=== PATIENT | female | born 1955 | race Caucasian/White ===

== ENCOUNTER 2022-10-20 19:52 | Inpatient (IN) | payer MEDICAID, MEDICARE ==
[~2022-10-20] VITALS: Ht 152.4 cm; Wt 44.5 kg
[2022-10-20 20:38] VITALS: BP_SYST 111
--- NOTE | 2022-10-20 21:08 | NUR ---
WITH PATIENT FOR MSE.
--- NOTE | 2022-10-20 21:10 | NUR ---
Patient triaged and placed in waiting room. VSS and patient appears in no acute distress at this time. Accompanied by self , awaiting available bed, and MD notified of need for MSE.
[2022-10-20] MEDS ORDERED: NACL 0.9% 1,000 ML IV ONE (21:15)
--- NOTE | 2022-10-20 21:51 | NUR ---
Patient to ER bed 08 to gown for evaluation. Side rails up.
--- NOTE | 2022-10-20 22:00 | NUR ---
PT FROM HOME TOLD TO COME IN BY PCP. PT REPORTS PCP TOLD HER SHE HAD PNA AFTER WORK UP. PT REPORT FEELING GEN WEAK, DENIES PAIN AND SOB. A&O X4 AND FOLLOWING COMMANDS. PT WITH HX OF LUNG CANCER.
[2022-10-20] MEDS ORDERED: iohexoL 350 mgI/mL, 100 ML INFUS..BTL IV ONE (22:19)
[2022-10-20 22:38] LABS: ANION GAP 7 (5-15); CHLORIDE 102 mmol/L (98-107); GLUCOSE 143 mg/dL (70-99); UREA NITROGEN, BLOOD 24 mg/dL (8-21)
[2022-10-20 22:50] LABS: ALANINE AMINOTRANSFERASE 20 U/L (12-78); ALBUMIN 2.4 g/dL (3.4-4.8); ASPARTATE AMINOTRANSFERASE 26 U/L (10-37); LIPASE 105 U/L (73-393); TOTAL BILIRUBIN 0.4 mg/dL (0.0-1.0)
[2022-10-20 22:53] LABS: GFR AFRICAN AMERICAN 71 mL/min (>90)
[2022-10-20 22:59] LABS: BASOPHILS # (AUTO) 0.1 K/uL (0.0-0.2); BASOPHILS % (AUTO) 0.5 % (0.0-2.0); EOSINOPHILS # (AUTO) 0.5 K/uL (0.0-0.4); EOSINOPHILS % (AUTO) 4.9 % (0.0-4.0); HEMATOCRIT 43.5 % (36-48); HEMOGLOBIN 14.1 g/dL (12.0-16.0); LYMPHOCYTES # (AUTO) 0.6 K/uL (1.0-5.5); LYMPHOCYTES % (AUTO) 5.4 % (20.5-51.5); MEAN CORPUSCULAR HEMOGLOBIN 29 pg (27-31); MEAN CORPUSCULAR HGB CONC 32 % (32-36); MEAN CORPUSCULAR VOLUME 90 fL (79.0-98.0); MONOCYTES # (AUTO) 0.8 K/uL (0.0-1.0); MONOCYTES % (AUTO) 7.7 % (1.7-9.3); NEUTROPHILS # (AUTO) 8.3 K/uL (1.8-7.7); NEUTROPHILS % (AUTO) 81.5 % (40.0-70.0); PLATELET COUNT (AUTO) 239 K/uL (130-430); RED BLOOD CELL COUNT(AUTO) 4.84 MIL/uL (4.2-6.2); RED CELL DISTRIBUTION WIDTH 14.6 % (9.0-15.0); WHITE BLOOD COUNT (AUTO) 10.2 K/uL (4.8-10.8)
[2022-10-21] VITALS (7 sets, daily range): BP systolic 92–120
[2022-10-21] MEDS ORDERED: NACL 0.9% 1,000 ML IV ONE (00:15)
--- NOTE | 2022-10-21 00:43 | NUR ---
Admit bed requested Patient will be admitted to care of Dr.PALIWAL Soto Admitted to MED SURG unit. Diagnosis PNA Inpatient (Yes or No) YES Observation (Yes or No) NO Orientation concerns or request close to nursing station (Yes or No) NO Covid Status NEGATIVE On vent or bipap NO Isolation requirements NO Needs a sitter NO From Home (Yes or if No enter name of facility) YES Requires Dialysis (Yes or No) NO Med Rec Completed (Yes of No) PENDING
--- NOTE | 2022-10-21 01:11 | NUR ---
MEDICATION REC COMPLETED. INFORMATION PROVIDED BY PATIENT.
--- NOTE | 2022-10-21 01:50 | NUR ---
Patient will be admitted to care of DR. COWART. Admitted to TELEMETRY unit. Will go to room 130A. Belongings list completed. Complete and up to date summary report printed. SBAR report given to KATHERIN ARREOLA at bedside with opportunity for questions.
--- NOTE | 2022-10-21 01:50 | NUR ---
ADMISSION NOTE [facility] room 130-A. A report given by [place]-ER nurse from phone. Patient admitted with diagnosis of Pneumonia . Patient is awake, alert, oriented X 4. Patient oriented to hospital room, call light, toileting, pain management and safety-teach back done. Patient informed that I (Denita) will be her nurse and that their room number is 130-A. Personal belongings checked and Belongings List documented. Pt is on 2L n/c oxy [id number]%. Iv site of LAC patent, no s/s any infiltration noted. Side rails x2,call light within reach. Cont to monitor pt.
--- NOTE | 2022-10-21 04:52 | NUR ---
ROUNDS; -Pt is asleep. No s/s any acute distress noted. Call light w/in reach. Cont to monitor pt.
--- NOTE | 2022-10-21 06:36 | NUR ---
CLOSING NOTES; -Pt is resting in bed comfortably. No s/s any sob,or any acute distress noted. Pt's condition stable. Fall precaution in place. bed alarmed, side rails x3, call light w/in reach. will endorse to next nurse to cont care.
[2022-10-21] MEDS ORDERED: HYDROcodone/ACETAMIN 10-325 MG TAB PO PRN (11:00)
[2022-10-21] MEDS ORDERED: ALBUTEROL SULFATE 0.083% 2.5 MG/3 ML VIAL.NEB INH PRN (11:00)
[2022-10-21] MEDS ORDERED: HYDROcodone/ACETAMIN 5-325 MG TAB (NORCO/ VICODIN) PO PRN (11:00)
[2022-10-21] MEDS ORDERED: IPRATROPIUM BROM 0.5 MG/2.5 ML VIAL.NEB (ATROVENT) INH PRN (11:00)
[2022-10-21] MEDS ORDERED: NALOXONE HCL 0.4 MG/ML AMP (NARCAN) IVP PRN ×2 (11:00)
[2022-10-21] MEDS ORDERED: ONDANSETRON HCL 4 MG/2 ML VIAL IVP PRN (11:00)
[2022-10-21] MEDS ORDERED: ACETAMINOPHEN 325 MG TABLET PO PRN (11:00)
--- NOTE | 2022-10-21 11:16 | NUR ---
CONSULTATION PAGED/CALLED Reason for Consultation: [] RESP FAIL Person Who was Notified: [] DEREK Consulting Physician: [] DR LIRA Submarine Diver Specialty: [] PULMO Ordering Physician: [] DR COWART
--- NOTE | 2022-10-21 11:19 | NUR ---
CONSULTATION PAGED/CALLED Reason for Consultation: [] PNA Person Who was Notified: [] ISIDRA Consulting Physician: [] DR BUCK Wood Grainer Specialty: [] ID Ordering Physician: [] DR Yesenia COWART
[2022-10-21] MEDS: NORMAL SALINE 5 ML DISP.SYRIN IVF SCH ×2 (13:58→23:11)
[2022-10-21] MEDS ORDERED: NORMAL SALINE 5 ML DISP.SYRIN IVF SCH (14:00)
--- NOTE | 2022-10-21 19:50 | NUR ---
PM ASSESSMENT; -Pt is a/ox4, resting in bed comfortably. Pt denies any chest pain,pain,sob,or any acute distress. No IV access this time. will insert new IV site. Discussed poc, all safety measures, pt verbalized understanding. Pt is able to ambulate with steady gaits. Side rails x2, call light w/in reach. Cont to monitor pt.
--- NOTE | 2022-10-21 21:36 | NUR ---
NOTES; -Inserted new IV site of LFA #22 attempted x1, good blood returns after flushed w/ ns,no s/s any infiltration, secured with tape.
[2022-10-22 00:25] VITALS: BP_SYST 116
--- NOTE | 2022-10-22 00:25 | NUR ---
ROUNDS; -Pt is resting in bed comfortably. VSS. Pt denies any chest pain,pain,sob,or any acute distress. Side rails x2, call light w/in reach. Cont to monitor pt.
[2022-10-22] MEDS: NORMAL SALINE 5 ML DISP.SYRIN IVF SCH ×3 (06:36→21:04)
--- NOTE | 2022-10-22 06:47 | NUR ---
CLOSING NOTES; -Pt is resting in bed comfortably. No s/s any sob,or any acute distress noted. Pt's condition stable. Fall precaution in place, side rails x2, call light w/in reach. will endorse to next nurse to cont care.
[2022-10-22 08:00] VITALS: BP_SYST 105
[2022-10-22 08:34] LABS: ALBUMIN 1.9 g/dL (3.4-4.8); CALCIUM 8.5 mg/dL (8.4-11.0); CREATININE 0.71 mg/dL (0.55-1.30); TOTAL BILIRUBIN 0.3 mg/dL (0.0-1.0)
[2022-10-22 08:57] LABS: BASOPHILS % (AUTO) 0.4 % (0.0-2.0); EOSINOPHILS # (AUTO) 0.5 K/uL (0.0-0.4); EOSINOPHILS % (AUTO) 7.3 % (0.0-4.0); HEMATOCRIT 38.6 % (36-48); HEMOGLOBIN 12.3 g/dL (12.0-16.0); LYMPHOCYTES # (AUTO) 0.4 K/uL (1.0-5.5); LYMPHOCYTES % (AUTO) 5.7 % (20.5-51.5); MEAN CORPUSCULAR HEMOGLOBIN 29 pg (27-31); MEAN CORPUSCULAR HGB CONC 32 % (32-36); MEAN CORPUSCULAR VOLUME 91 fL (79.0-98.0); MONOCYTES # (AUTO) 0.5 K/uL (0.0-1.0); NEUTROPHILS # (AUTO) 5.9 K/uL (1.8-7.7); NEUTROPHILS % (AUTO) 79.6 % (40.0-70.0); PLATELET COUNT (AUTO) 221 K/uL (130-430); RED BLOOD CELL COUNT(AUTO) 4.23 MIL/uL (4.2-6.2); RED CELL DISTRIBUTION WIDTH 14.4 % (9.0-15.0); WHITE BLOOD COUNT (AUTO) 7.4 K/uL (4.8-10.8)
[2022-10-22 12:00] VITALS: BP_SYST 109; BP_SYST 114
[2022-10-22] MEDS: methylPREDNISolone SOD SUCC/PF 62.5 MG/ML VIAL IVP SCH ×2 (14:31→21:03)
[2022-10-22 16:55] VITALS: BP_SYST 111
[2022-10-22 19:45] VITALS: BP_SYST 117
--- NOTE | 2022-10-22 19:45 | NUR ---
PM ASSESSMENT; -Pt is a/ox4, resting in bed comfortably. Pt denies any chest pain,pain,sob,or any acute distress. Discussed poc, all safety measures, pt verbalized understanding. Pt is able to ambulate with steady gaits. Side rails x2, call light w/in reach. Cont to monitor pt.
--- NOTE | 2022-10-22 23:06 | NUR ---
NOTES;PAGED PAGED Yesenia ATKINSON REGARDING PT WANTS XANAX 0.2MG PO FOR SLEEP. WAITING FOR MD TO RETURN CALLBACK Addendum: 10/22/22 at 2338 by Malaika Calderon RN RN CALLED AND ORDERED XANAX 0.25MG PO AT [facility] PRN.
[2022-10-22] MEDS: ALPRAZolam 0.25 MG TABLET PO PRN (23:33)
--- NOTE | 2022-10-22 23:33 | NUR ---
NOTES; GAVE XANAX 0.25MG PO UPON PT'S REQUEST
[2022-10-23 00:12] VITALS: BP_SYST 97
--- NOTE | 2022-10-23 00:12 | NUR ---
ROUNDS; -Pt is resting in bed comfortably. Vital signs stable. Pt denies any chest pain,pain,sob,or any acute distress. Side rails x2, call light w/in reach. Cont to monitor pt.
[2022-10-23] MEDS: methylPREDNISolone SOD SUCC/PF 62.5 MG/ML VIAL IVP SCH ×3 (05:20→21:11)
[2022-10-23] MEDS: NORMAL SALINE 5 ML DISP.SYRIN IVF SCH ×3 (05:21→21:11)
[2022-10-23 08:45] LABS: BASOPHILS % (AUTO) 0.1 % (0.0-2.0); EOSINOPHILS % (AUTO) 0.1 % (0.0-4.0); HEMATOCRIT 36.7 % (36-48); LYMPHOCYTES # (AUTO) 0.3 K/uL (1.0-5.5); LYMPHOCYTES % (AUTO) 3.9 % (20.5-51.5); MEAN CORPUSCULAR HEMOGLOBIN 29 pg (27-31); MEAN CORPUSCULAR HGB CONC 33 % (32-36); MEAN CORPUSCULAR VOLUME 89 fL (79.0-98.0); MONOCYTES # (AUTO) 0.1 K/uL (0.0-1.0); MONOCYTES % (AUTO) 1.4 % (1.7-9.3); NEUTROPHILS % (AUTO) 94.5 % (40.0-70.0); PLATELET COUNT (AUTO) 219 K/uL (130-430); RED BLOOD CELL COUNT(AUTO) 4.13 MIL/uL (4.2-6.2); RED CELL DISTRIBUTION WIDTH 13.8 % (9.0-15.0); WHITE BLOOD COUNT (AUTO) 6.4 K/uL (4.8-10.8)
[2022-10-23 09:23] LABS: C-REACTIVE PROTEIN QUANT 8.1 mg/dL (0-0.5); CREATININE 0.69 mg/dL (0.55-1.30)
[2022-10-23] MEDS ORDERED: DOXY100C PO (10:28)
[2022-10-23 11:44] LABS: ERYTHROCYTE SEDIMENTATION RATE 82 MM/HR (0-20)
--- NOTE | 2022-10-23 12:41 | NUR ---
Dietitian recommendations: 1. Continue regular diet as ordered. 2. Encourage PO intake. 3. Provide Ensure (chocolate) TID w/ meals per patient request. Please refer to nutrition assessment for details. ZACH CHAIDEZ
[2022-10-23 19:00] VITALS: BP_SYST 125
[2022-10-23 20:00] VITALS: BP_SYST 125
[2022-10-23] MEDS: ALPRAZolam 0.25 MG TABLET PO PRN (21:10)
[2022-10-24] VITALS: BP_SYST 122
[2022-10-24] MEDS: methylPREDNISolone SOD SUCC/PF 62.5 MG/ML VIAL IVP SCH ×2 (06:45→08:40)
[2022-10-24] MEDS: NORMAL SALINE 5 ML DISP.SYRIN IVF SCH ×2 (06:45→14:08)
[2022-10-24 07:09] LABS: BASOPHILS % (AUTO) 0.2 % (0.0-2.0); HEMATOCRIT 36.6 % (36-48); HEMOGLOBIN 11.5 g/dL (12.0-16.0); LYMPHOCYTES # (AUTO) 0.4 K/uL (1.0-5.5); LYMPHOCYTES % (AUTO) 2.9 % (20.5-51.5); MEAN CORPUSCULAR HEMOGLOBIN 28 pg (27-31); MEAN CORPUSCULAR HGB CONC 32 % (32-36); MEAN CORPUSCULAR VOLUME 89 fL (79.0-98.0); MONOCYTES # (AUTO) 0.5 K/uL (0.0-1.0); MONOCYTES % (AUTO) 3.3 % (1.7-9.3); NEUTROPHILS # (AUTO) 13.4 K/uL (1.8-7.7); NEUTROPHILS % (AUTO) 93.6 % (40.0-70.0); PLATELET COUNT (AUTO) 251 K/uL (130-430); RED BLOOD CELL COUNT(AUTO) 4.11 MIL/uL (4.2-6.2); RED CELL DISTRIBUTION WIDTH 14.1 % (9.0-15.0); WHITE BLOOD COUNT (AUTO) 14.3 K/uL (4.8-10.8)
[2022-10-24 07:32] LABS: C-REACTIVE PROTEIN QUANT 3.5 mg/dL (0-0.5); CALCIUM 8.8 mg/dL (8.4-11.0); CREATININE 0.73 mg/dL (0.55-1.30)
[2022-10-24 08:00] VITALS: BP_SYST 130
[2022-10-24 09:04] LABS: ERYTHROCYTE SEDIMENTATION RATE 65 MM/HR (0-20)
[2022-10-24] MEDS ORDERED: LEVO750T64 PO (14:19)
[2022-10-24] MEDS ORDERED: PRED10TA PO (14:21)
[2022-10-24] MEDS ORDERED: PRED20TA PO (14:21)
[2022-10-24 14:50] VITALS: BP_SYST 134
--- NOTE | 2022-10-24 16:00 | NUR ---
Patient has ride to pick patient up. Patient education provided. To follow up with PCP within one week. All paperwork given to patient. Patient IV removed. Patient belongings present. Patient ambulatory with steady gait to personal vehicle. No distress noted.
== END 2022-10-24 16:00 | disposition home or self-care (01) | DRG 139 ==
LOC: SED 19:52 → SMU 10-21 00:41
PROVIDERS: ADMIT Preventive Medicine Preventive Medicine/Occupational Environmental Medicine; ATTEND Preventive Medicine Preventive Medicine/Occupational Environmental Medicine
DX: J18.9 Pneumonia, unspecified organism (principal); J96.00 Acute respiratory failure, unspecified whether with hypoxia or hypercapnia; E43 Unspecified severe protein-calorie malnutrition; E87.20 Acidosis, unspecified; E88.09 Other disorders of plasma-protein metabolism, not elsewhere classified; C34.90 Malignant neoplasm of unspecified part of unspecified bronchus or lung; Z20.822 Contact with and (suspected) exposure to COVID-19; I11.0 Hypertensive heart disease with heart failure; I50.9 Heart failure, unspecified; F17.200 Nicotine dependence, unspecified, uncomplicated; R73.9 Hyperglycemia, unspecified; Z88.1 Allergy status to other antibiotic agents; Z88.0 Allergy status to penicillin; Z79.899 Other long term (current) drug therapy; Z68.1 Body mass index [BMI] 19.9 or less, adult; Z85.118 Personal history of other malignant neoplasm of bronchus and lung; Z90.710 Acquired absence of both cervix and uterus; Z87.01 Personal history of pneumonia (recurrent)
CPT/HCPCS: 36415; 71045; 80048; 80053; 83605; 83690; 83735; 84100; 84484; 85025; 85651-TC; 86140; 87040; 93005; 94640; 94760; 96361; 96365; 99285; J1956; J2930; J7050; J7613; Q9967